=== PATIENT | female | born 1955 | race Caucasian/White ===

== ENCOUNTER → 2023-01-17 | Outpatient (CLI) | payer MEDICARE, SELFPAY ==
[2023-01-17 13:16] LABS: T3 Total - Triiodothyronine 1.16 ng/mL (0.6-1.81)
[2023-01-17 13:33] LABS: Ferritin 154 ng/mL (8-252); T4 Free Direct 1.05 ng/dL (0.76-1.46); Thyroid Stim Hormone (TSH) 2.84 uIU/mL (0.358-3.74)
[2023-01-19 08:25] LABS: Thyroid Peroxidase AB < 9 IU/mL (0-34); Zinc, Plasma or Serum 87 ug/dL (44-115)
== END | disposition home or self-care (01) ==
PROVIDERS: PCP Internal Medicine; Referring Provider Physician Assistant Medical; Visit Provider Physician Assistant Medical
DX: L65.9 Nonscarring hair loss, unspecified (principal); L29.8 Other pruritus
CPT/HCPCS: 36415; 82728; 84439; 84443; 84480; 84630; 86376